=== PATIENT | female | born 2000 | race Caucasian/White ===

== ENCOUNTER 2024-01-21 12:18 | Observation (INO) | payer BC, SELFPAY ==
[2024-01-20 23:11] VITALS: BP 123/68
[2024-01-20 23:51] VITALS: BMI 23.1
--- NOTE | 2024-01-20 23:52 | ED.GENMED ---
History of Present Illness
General
Chief Complaint: Abdominal Pain
Time Seen by Provider: 01/20/24 23:35
Travel History
Have you had any contact with someone who has COVID-19?: No
Do you have any symptoms of coronavirus? Fever > 100 degrees, chills, cough, shortness of breath, sore throat, loss of taste or smell, muscle aches, or headache?: No
History of Present Illness
History of Present Illness:
23-year-old female presenting with periumbilical pain now moving to lower abdomen and right flank starting around 2 PM with associated nausea, vomiting and diarrhea. LMP 6 weeks ago. Patient states that her period is typically irregular. Patient
denies dysuria or hematuria.
Phy Exam
Physical Exam
Physical Exam:
General: Alert, no acute distress
Head: NCAT
Eyes: clear conjunctiva
Neck: supple
Cardiac: regular rate and rhythm, no murmur
Lungs: clear to auscultation bilaterally. No wheezes, rales, or rhonchi. Speaking full unlabored sentences. No respiratory distress.
Abdomen: soft, nondistended, right lower quadrant tenderness to palpation. No rebound or guarding. Right CVA tenderness to palpation. No left CVA tenderness to palpation
MSK: no lower extremity edema bilaterally. No deformity
Skin: warm, dry
Neuro: Alert and oriented x3. no focal deficits
Course
Orders/Labs/Results
Orders:
Orders
01/20/24 23:46
IV Insert/Care/Rem.- Treatment PRN
Complete Blood Count/With Diff Urgent
Comprehensive Metabolic Panel Urgent
Lipase Urgent
Urinalysis Reflex To Culture Urgent
Date Specimen was Collected: 01/20/24
Time Specimen was Collected: 23:46
01/20/24 23:52
, Urine Qualitative Screen [HCG, Urine Qualitative Screen] Urgent
Ketorolac [Toradol] 15 mg IV NOW STA
Ondansetron Injectable [Zofran] 4 mg IV NOW STA
Test Result ONCE
01/21/24 00:00
CT Abd/Pel (IV only)-DH only Urgent
Reason For Exam: rlq tenderness
01/21/24 00:02
0.9% Sodium Chloride 1000 ml [Nss] 1,000 ml IV BOLUS
01/21/24 00:05
Add On- LAB Urgent
Tests Added?: serum HCG
01/21/24 00:07
HCG, Serum Qualitative Screen Urgent
Comment: ADD ON
Urine Microscopic Reflex Cult Urgent
Urine Culture Urgent
ZOEY Source: U
Specimen Description:
Date Specimen was Collected: 01/20/24
Time Specimen was Collected: 23:46
01/21/24 01:11
Piperacillin/Tazo 4.5 Gram [Zosyn] 4.5 gram in 100 ml IV NOW
Abnormal Lab Results
01/21/24
00:07
WBC 13.9 H 10^3/uL
(4.8-10.8)
RBC 4.06 L 10^6/uL
(4.20-5.40)
Hct 36.9 L %
(37.0-47.0)
MCH 31.3 H pg
(27.0-31.0)
Abs Immat Gran (auto) 0.2 H 10^3/uL
(0-0.05)
Absolute Neuts (auto) 12.3 H 10^3/uL
(1.4-6.5)
Absolute Lymphs (auto) 0.5 L 10^3/uL
(1.2-3.4)
Absolute Monos (auto) 0.8 H 10^3/uL
(0.1-0.6)
Immature Gran % 1.4 H %
(0-0.5)
Neutrophils % 88.8 H %
(42.2-75.2)
Lymphocytes % 3.7 L %
(20.5-51.1)
Glucose 127 H mg/dl
(70-99)
AST 12 L U/L
(14-36)
Urine Ketones 3+ A
(Negative)
Ur Occult Blood Reflex 1+ A
(Negative)
Urine RBC 7-10 A /HPF
(0-2)
Urine Bacteria (Reflex) Many A
(Negative)
01/21/24 00:07
01/21/24 00:07
Vital Signs
Initial and Last Documented VS:
Initial Vital Signs
Temp Pulse Resp BP Pulse Ox
98.9 F 90 16 123/68 99
01/20/24 23:11 01/20/24 23:11 01/20/24 23:11 01/20/24 23:11 01/20/24 23:11
Last Documented Vital Signs
Temp Pulse Resp BP Pulse Ox
98.9 F 73 20 113/60 100
01/20/24 23:11 01/21/24 00:07 01/21/24 00:07 01/21/24 00:07 01/21/24 00:07
MDM/Problems Addressed
MDM/Problems Addressed:
Patient presents to the Emergency Department with ____periumbilical abdominal pain
Number and Complexity of Problems Addressed at the Encounter
� Chronic conditions affecting care:
� Acute Exacerbation and/or Progression of Chronic Illness:
� Differential Diagnosis includes: Appendicitis, kidney stone, pyelonephritis, UTI
Amount and/or Complexity of Data to be Reviewed and Analyzed
� I performed an independent evaluation of and my interpretation is:
EKG:
CT:
Xrays:
Laboratory Studies: leukocytosis with WBC 13.9.
Other:
� Review of other/old records reveals:
� Clinical information was obtained by an independent historian:
� Prescriptions/Medications Considered but not given:
� Further testing considered but not performed:
Risk of Complications and/or Morbidity or Mortality of Patient Management
� Social Determinants of health affecting care:
� Discussion with other providers (PCP, Hospitalists, Consultants, etc): Dr. Huizar general surgery
� Escalation of care including admission/observation vs risk of discharge considered: 23yoF presenting with periumbilical migrating to right lower quadrant with nausea, vomiting, diarrhea starting today. CT abdomen/pelvis shows acute uncomplicated
appendicitis. Ordered Zosyn. Discussed with Dr. Huizar general surgery, who accepts for admission
*Critical Care Note
Total Time (30-74mins, 75-104mins- exclusive of procedures): Not Applicable
ED Attending Note
-
Portions of this chart may have been created with voice recognition software.� Occasional wrong word or��sound alike� substitutions may have occurred due to the inherent limitations of voice recognition software.
Discharge Plan
Departure
Patient Disposition: Admit
Date of Disposition: 01/21/24
Time of Disposition: 01:22
Admit to doctor: Bhupendra
Presentation/result/management discussed w/ accepting MD/DO: general tony Huizar
Discharge Problem:
Acute appendicitis
Prescriptions:
No Action
No Current Medications
0
Referrals:
UNKNOWN - PT DOES,NOT KNOW [Family Provider] -
Interventions
Interventions:
*Risk Screen - Suicide Last Done: 01/20/24 23:11
*General Assessment Last Done: 01/20/24 23:11
*Neglect/Abuse Screening Last Done: 01/20/24 23:11
ED- Fall Risk Assessment Last Done: 01/20/24 23:51
UM-Bsadwo-Nqzcrfuxry Assessment Last Done: 01/20/24 23:51
Discharge Date and Time
Print Language: LITHUANIAN
[2024-01-21] VITALS (9 sets, daily range): BP systolic 105–121; BP diastolic 57–76; BMI 23.1
[2024-01-21] MEDS: NSS 1000 IV ×2 (00:14→04:06)
[2024-01-21] MEDS: TORADOL 15 MG IV (00:14)
[2024-01-21] MEDS: ZOFRAN 4 MG IV (00:14)
[2024-01-21 00:16] LABS: Urine Albumin Negative (Neg - Trace); Urine Bilirubin Negative (Negative); Urine Character Clear (Clear); Urine Color Yellow; Urine Glucose Negative (Negative); Urine Ketone 3+ (Negative); Urine Leukocyte Negative (Negative); Urine Nitrite Negative (Negative); Urine Occult Blood 1+ (Negative); Urine Urobilinogen Negative (Neg - 1+)
[2024-01-21 00:23] LABS: Urine Mucus Many; Urine Squamous Cell 16-20 /LPF (Few)
[2024-01-21 00:24] LABS: Urine Bacteria Many (Negative)
[2024-01-21 00:25] LABS: HCG, Serum Qualitative Screen Negative
[2024-01-21 00:27] LABS: ALT (SGPT) 12 U/L (0-35); AST (SGOT) 12 U/L (14-36); Albumin 4.6 g/dl (3.5-5.0); Alkaline Phosphatase 47 U/L (38-126); Blood Urea Nitrogen 12 mg/dl (7-17); Calcium 9.7 mg/dl (8.4-10.2); Carbon Dioxide 22 mmol/L (22-30); Chloride 104 mmol/L (98-107); Estimated Creatinine Clearance 109 ml/min; Glucose 127 mg/dl (70-99); Lipase 47 U/L (23-300); Potassium 3.8 mmol/L (3.5-5.1); Sodium 136 mmol/L (135-145); Total Bilirubin 0.7 mg/dl (0.2-1.3); Total Protein 7.4 g/dl (6.3-8.2); eGFR > 60.00
[2024-01-21 00:36] LABS: % Basophils 0.3 % (0-2); % Immature Granulocytes 1.4 % (0-0.5); % Lymphocytes 3.7 % (20.5-51.1); % Monocytes 5.8 % (1.7-9.3); % Neutrophils 88.8 % (42.2-75.2); Absolute Immature Granulocytes 0.2 10^3/uL (0-0.05); Absolute Lymphocytes 0.5 10^3/uL (1.2-3.4); Absolute Monocytes 0.8 10^3/uL (0.1-0.6); Absolute Neutrophils 12.3 10^3/uL (1.4-6.5); Hematocrit 36.9 % (37.0-47.0); Hemoglobin 12.7 g/dL (12.0-16.0); Mean Corp Hgb Conc. 34.4 g/dL (33.0-37.0); Mean Corpuscular Hgb 31.3 pg (27.0-31.0); Mean Corpuscular Volume 90.9 fL (81.0-99.0); Mean Platelet Volume 9.3 fL (7.4-10.4); Nucleated Red Blood Cells % 0 %; Platelet Count 241 10^3/uL (130-400); Red Blood Cell Count 4.06 10^6/uL (4.20-5.40); Red Cell Dist. Width 12.4 % (11.5-14.5); White Blood Cell Count 13.9 10^3/uL (4.8-10.8)
[2024-01-21] MEDS: ZOSYN 100 IV (01:35)
--- NOTE | 2024-01-21 01:56 | HPS.HSE ---
Addendum entered and electronically signed by Bi Huizar MD 01/21/24 07:34:
Patient seen and examined independently.
Patient is a 23 yo F with no pertinent PMH who presents with less than 24 hours of periumbilical and RLQ abdominal pain. Mercedes states that her discomfort began yesterday afternoon around 2 PM. She describes an achy discomfort around her umbilicus
which radiates to her RLQ. Symptoms and the pain persisted prompting presentation to the ED. Associated nausea and vomiting. No fevers or chills. No fluctuations in bowel habits. No urinary symptoms. Patient is not currently on her period. No
personal or family history of IBD or GI malignancies.
Gen: NAD
Abd: soft, tender to palpation in RLQ, ND, non-peritoneal
Labs and imaging were reviewed
Patient is a 23 yo F p/w acute appendicitis
The natural history and pathophysiology of appendicitis was discussed. Labs and CT scan imaging were reviewed. Options for management including medical management with antibiotics versus surgical management with appendectomy were considered and
discussed. The pros and cons of both approaches was discussed. Specifically, we discussed failure of medical management of future episodes of appendicitis versus surgical risks. Recommend appendectomy.
Plan for a laparoscopic appendectomy. The procedure itself, as well as the risks, benefits, and alternatives was discussed. Specifically, we discussed the risks of bleeding, infection, injury to surrounding structures (bowel, bladder), staple line
leak, need for open procedure. Typical postprocedural recovery was discussed. All questions answered. Consent signed.
-- Laparoscopic appendectomy
-- Antibiotics: Zosyn
-- NPO, IVF
-- Pain control: Tylenol and IV Dilaudid as needed
Original Note:
Family Physician
-
Family Physician: NOT KNOW UNKNOWN - PT DOES
Chief Complaint
-
abd pain
History of Present Illness
23 yo female with no pmhx present to ED for complaints of abdominal pain starting around 2pm. This has been associated with nausea and vomiting. Denies fevers or chills. Endorses to increase bloating feeling.
WBC 13.[address] abd : consistent with acute appendicitis w/o perforation
Medical History
Past Medical History
Past Medical History: Reports None
Past Surgical History: Reports Other (wisdom teeth 2016)
Social History
Tobacco: Non-smoker
Alcohol: None
Drug: Marijuana (weekly)
Personal: Single
Living: With Family
Employment: Employed
Family History
Family History: Not pertinent
Allergies / Home Medications
Allergies reflects when Allergies were last updated in [employer].
Home Medications with original date entered in [employer]
Allergy/Medication List:
Allergies
Allergy/AdvReac Type Severity Reaction Status Date / Time
No Known Allergies Allergy Unverified 01/20/24 23:11
Home Medications
No Meds [No Current Medications] 01/21/24
Review of Systems
-
History Source: Patient
A 12 point ROS was completed and negative except as noted: Yes
Constitutional: Reports No Symptoms
EENT: Reports No Symptoms
Respiratory: Reports No Symptoms
Cardiac: Reports No Symptoms
Abdomen/GI: Reports Abdominal Pain (umbilical to rlq), Nausea and Vomiting
: Reports No Symptoms
Musculoskeletal: Reports No Symptoms
Skin: Reports No Symptoms
Neurological: Reports No Symptoms
Endocrine: Reports No Symptoms
Hematologic/Lymphatic: Reports No Symptoms
Psych: Reports No Symptoms
Physical Exam
Vital Signs
Vital Signs
Temp Pulse Resp BP Pulse Ox
98.9 F 59 20 105/65 99
01/20/24 23:11 01/21/24 01:28 01/21/24 01:28 01/21/24 01:28 01/21/24 01:28
Physical Exam
General: Well Developed, Well Nourished, No Apparent Distress, Comfortable and Conversant
HEENT: NormoCephalic, Moist mucous membranes, Atraumatic and Good Dentition
Respiratory: Clear and Non Labored Respirations
Cardiac: S1/S2 and Regular Rhythm
Breast: Deferred by me
GI: Soft, Normal Bowel Sounds, Tender (umbilical to RLQ) and Other (mildly distended)
Rectal: Deferred by Provider
Genito-urinary: Deferred by me
Musculoskeletal: No Cyanosis
Skin: Warm and Dry
Neuro: Awake, Oriented and AO x 3
Hematologic/Lymphatic: No Lymphadenopathy
Psych: Calm and Intact Judgment/Insight
Laboratory Results
-
01/21/24 00:07
01/21/24 00:07
Laboratory Results
Total Bilirubin 0.7 mg/dl (0.2-1.3) 01/21/24 00:07
AST 12 U/L (14-36) L 01/21/24 00:07
ALT 12 U/L (0-35) 01/21/24 00:07
Alkaline Phosphatase 47 U/L (38-126) 01/21/24 00:07
Lipase 47 U/L (23-300) 01/21/24 00:07
Data Reviewed
-
CT Scan: Report Reviewed by me and Discussed with Physician
Lab Data: Labs Reviewed by me and Discussed with Physician
Impression/Plan
-
IMPRESSION:
acute appendicitis w/o perforations
PLAN:
Admit to service of Dr Huizar
Med surg
#acute appendicitis
-Ct abd consistant with acute appendicitis w/o perforation
-npo x meds
-pain control: tylenol, toradol, dilaudid
-zofran prn
-cont zosyn q6
- cbc, bmp in am
full code
dvt proph: scd
[2024-01-21] MEDS: TORADOL 10 MG IV (04:08)
--- NOTE | 2024-01-21 04:40 | PTCARENOTE ---
Pt arrived to the unit via stretcher from the ED at 0251. Pt was able to ambulate from the stretcher to the bed. AAOX3. pt complaining of 6/10 pain. see MAR. full head to toe assessment complete. bed in lowest position and locked. call jarquin within
reach.
[2024-01-21 06:52] LABS: Blood Urea Nitrogen 10 mg/dl (7-17); Calcium 9.1 mg/dl (8.4-10.2); Carbon Dioxide 20 mmol/L (22-30); Chloride 106 mmol/L (98-107); Estimated Creatinine Clearance > 125 ml/min; Glucose 110 mg/dl (70-99); Potassium 4.1 mmol/L (3.5-5.1); Sodium 136 mmol/L (135-145); eGFR > 60.00
[2024-01-21 06:54] LABS: % Basophils 0.3 % (0-2); % Eosinophils 0.1 % (0-6); % Immature Granulocytes 0.5 % (0-0.5); % Lymphocytes 8.7 % (20.5-51.1); % Monocytes 8.9 % (1.7-9.3); % Neutrophils 81.5 % (42.2-75.2); Absolute Immature Granulocytes 0.1 10^3/uL (0-0.05); Absolute Lymphocytes 1.1 10^3/uL (1.2-3.4); Absolute Monocytes 1.2 10^3/uL (0.1-0.6); Absolute Neutrophils 10.6 10^3/uL (1.4-6.5); Hematocrit 33.3 % (37.0-47.0); Hemoglobin 11.5 g/dL (12.0-16.0); Mean Corp Hgb Conc. 34.5 g/dL (33.0-37.0); Mean Corpuscular Hgb 30.7 pg (27.0-31.0); Mean Corpuscular Volume 88.8 fL (81.0-99.0); Mean Platelet Volume 9.6 fL (7.4-10.4); Nucleated Red Blood Cells % 0 %; Platelet Count 250 10^3/uL (130-400); Red Blood Cell Count 3.75 10^6/uL (4.20-5.40); Red Cell Dist. Width 12.5 % (11.5-14.5); White Blood Cell Count 13.1 10^3/uL (4.8-10.8)
[2024-01-21] MEDS: TYLENOL 650 MG PO ×2 (08:19→14:38)
[2024-01-21] MEDS: ZOSYN 50 IV ×2 (08:19→14:21)
--- NOTE | 2024-01-21 09:02 | W.SUR.PREOP ---
Pre-Operative Surgical Note
-
I have examined this patient prior to the performance of the scheduled procedure.
The patient's condition is unchanged from the time of the current History and
Physical and the patient is able to undergo the scheduled procedure.
--- NOTE | 2024-01-21 09:05 | PTCARENOTE ---
Suicide screening performed at this time due to previous answer of 'yes' to having suicidal thoughts with the last two weeks. Patient states that she does not have any suicidal ideation or thoughts of harming herself at this time or within the past
two weeks. She states that answered 'yes' to the suicide questionaire because she was hospitalized for suicidal thoughts in high school but has not had any thoughts or plans about suicide recently.
[2024-01-21] MEDS: CLARITIN 10 MG PO (09:37)
[2024-01-21 11:00] LABS: HCG, Urine Qualitative Screen Negative
--- NOTE | 2024-01-21 12:16 | W.IMMPOSTOP ---
Addendum entered and electronically signed by Bi Huizar MD 01/21/24 12:24:
[facility]# [id number]
Original Note:
Surgical Immed Post Op Note
-
Primary Surgeon: Bhupendra
Assisting Surgeon: None
Pre-op Diagnosis: Acute appendicitis
Post-op Diagnosis: Acute appendicitis
Procedure Performed: Laparoscopic appendectomy
Anesthesia Type: General
Specimen / Cultures:
1. Appendix
Estimated Blood Loss: 3 cc
Complications: None
Operative Findings:
1. Acutely inflamed, dilated, nonperforated appendix, reactive serous fluid
2. Mesentery taken with LigaSure, base with aguilar load stapler
[2024-01-21] MEDS: ROXICODONE 5 MG PO (15:10)
--- NOTE | 2024-01-21 15:21 | CM ---
Initial assessment completed with pt.
Pt is a 23yr old female admitted with Appendicitis and appendectomy.
Pt is OBS and OBS letter issued.
Pt lives with her family and is independent at baseline.
Pt will dc to home today with no needs.
== END 2024-01-21 16:45 | disposition home or self-care (01) ==
LOC: EICU 12:18
PROVIDERS: Nurse Practitioner Family; ADMITTING PHYSICIAN Surgery; EMERGENCY PHYSICIAN Emergency Medicine
DX: K35.80 Unspecified acute appendicitis (principal); R10.9 Unspecified abdominal pain
CPT/HCPCS: 44970; 88304; 74177; 80048; 80053; 81003; 81015; 81025; 83690; 84703; 85025; 87086; 96361; 96365; 96375; 99285; G0378; Q9967